=== PATIENT | female | born 1955 | race Caucasian/White ===

== ENCOUNTER → 2017-07-14 | Outpatient (CLI) | payer MEDICARE, BC ==
[2017-07-14 13:23] LABS: Basophils % (A) 0 %; CH 32.1; CHCM 34.1; Eosinophils # (A) 0.1 k/uL (0-0.7); Eosinophils % (A) 1 %; HDW 2.17; HGB 13.4 gm/dL (11.4-16.0); Luc # (Auto) 0.15; Luc % (Auto) 2; Lymphocytes # (A) 2.2 k/uL (1.0-4.8); Lymphocytes % (A) 29 %; MCH 31.7 pg (25.0-35.0); MCHC 33.6 g/dL (31.0-37.0); MCV 94.6 fL (80.0-100.0); Mean Platelet Volume 7.4; Monocytes # (A) 0.7 k/uL (0-1.0); Monocytes % (A) 10 %; Neutrophils # (A) 4.4 k/uL (1.3-7.7); Neutrophils % (A) 59 %; RBC 4.23 m/uL (3.80-5.40); RDW 12.7 % (11.5-15.5); WBC 7.5 k/uL (3.8-10.6); WBC (Perox) 7.73
[2017-07-14 14:22] LABS: Anion Gap 8 mmol/L; Blood Urea Nitrogen 17 mg/dL (7-17); Carbon Dioxide 28 mmol/L (22-30); Chloride 98 mmol/L (98-107); Glucose 84 mg/dL (74-99); Non-African American GFR(MDRD) 59 (>60 ml/min/1.73 sqM); Potassium 4.8 mmol/L (3.5-5.1); Sodium 134 mmol/L (137-145)
== END | disposition home or self-care (01) ==
LOC: LABPAT 12:12
PROVIDERS: ATTEND Obstetrics & Gynecology
DX: Z01.810 Encounter for preprocedural cardiovascular examination (principal); Z01.818 Encounter for other preprocedural examination; N81.4 Uterovaginal prolapse, unspecified; I10 Essential (primary) hypertension
CPT/HCPCS: 80051; 82565; 82947; 84520; 85025; 87086

== ENCOUNTER 2017-07-18 06:36 | Day surgery (SDC) | payer MEDICARE ==
[2017-07-16 08:36] VITALS: BMI 22.4
--- NOTE | 2017-07-17 18:35 | HP ---
HISTORY AND PHYSICAL HISTORY: This is a 61-year-old 2 para 2 woman with symptomatic pelvic prolapse and stress urinary incontinence. She is scheduled to undergo total vaginal hysterectomy with anterior and posterior colporrhaphies on 07/18/17. Mid urethral sling will be placed at the same time by Dr. Rodriguez from Urology. She complains of worsening pelvic pressure and tissue protrusion from the vagina over the last several years. She has leakage of urine with coughing, laughing, lifting or vigorous activities. She has pelvic and low back discomfort. ALLERGIES: 1. FLEXERIL. 2. PROZAC. 3. ZYRTEC. MEDICATIONS: 1. Ativan. 2. Depakote. 3. Inderal LA. 4. Lamictal. 5. Meclizine. 6. Procardia. 7. Protonix. 8. Seroquel. 9. Wellbutrin SR. Please refer to the chart for specific dosing. PAST MEDICAL HISTORY: 1. Stress urinary incontinence. 2. Pelvic prolapse. 3. Hypertension. 4. Seizure disorder. PAST SURGICAL HISTORY: 1. Cholecystectomy. 2. Inguinal hernia repair. [employer] PAST HISTORY: She is a 2 para 2 with history of 2 spontaneous vaginal deliveries. Last menstrual period was in 1993. No history of abnormal Pap smears or STDs. SOCIAL HISTORY: She is . She is an everyday smoker. Denies alcohol or drug use. FAMILY HISTORY: Significant for diabetes, hypertension and heart disease. REVIEW OF SYSTEMS: Positive for urinary incontinence, pelvic prolapse, pelvic pain. Negative for recent weight gain, weight loss, fevers, chills, nausea, vomiting, diarrhea, chronic constipation, chest pain, shortness of breath. PHYSICAL EXAM: Height 5 feet 3-1/2 inches. Weight 138 pounds. Blood pressure 158/80. GENERAL: This is a pleasant woman in no apparent distress. HEENT exam is unremarkable with no palpable lymphadenopathy or thyromegaly. The lungs are clear to auscultation bilaterally. The heart is of regular rate and rhythm. ABDOMEN: Soft and nontender with no rebound and no guarding and no flank pain. On pelvic examination, she has normal female external genitalia without lesions or irritation. There are some mild atrophic changes noted. On Valsalva maneuver she has a grade 2 rectocele and a grade 4 cystocele and grade 3 cervical uterine prolapse. She has a hypermobile urethra. On bimanual examination, the uterus is small, freely mobile and in the midline. There are no adnexal abnormalities appreciated. Rectovaginal examination confirms this. ASSESSMENT: This is a 61-year-old 2 para 2 woman with symptomatic stage III pelvic prolapse and stress urinary incontinence with a hypermobile urethra. She is scheduled to undergo total vaginal hysterectomy with anterior and posterior colporrhaphies, and a mid urethral sling will be done by Dr. Rodriguez at this time. This procedure, its alternatives, risks and benefits have been reviewed with the patient in detail. Risks include but are not limited to bleeding, transfusion, infection, laparotomy, damage to bowel, bladder, ureters and/or other pelvic or abdominal structures. She may have recurrence of her prolapse in the future. She may have ongoing incontinence or urinary retention. She may have anesthesia complications, DVT, PE and/or . The patient understands these risks and has declined a second opinion. She is scheduled to undergo the above-named procedure on 07/18/17. Thank you. JOHN / PAULETTE: [id number] /
[~2017-07-18 06:36] MED LIST: DEXAMETHASONE SOD PHOSPHATE 10 MG/ML 1 ML VIAL IV ONE; HYDROmorphone 1 MG/ML 1 ML SYRINGE IVP PRN; LACTATED RINGERS 1,000 ML IV SCH; LEVOFLOXACIN 500MG-D5W PMX 500 MG in DEXTROSE/WATER 1 100ML.BAG IVPB ONE; MIDAZOLAM 2 MG/2 ML VIAL IV PRN; ONDANSETRON 4 MG/2 ML VIAL IVP ONE; SCOPOLAMINE 1.5MG/72HR PATCH TRANSDERM ONE; ceFAZolin 2 GM in SODIUM CHLORIDE 0.9% 100 ML IVPB ONE
[2017-07-18] MEDS ORDERED: LIDOCAINE 1% 20 ML VIAL (10MG/ML) FOR IV START INTRADERMA ONE (07:19)
[2017-07-18] MEDS ORDERED: MORPHINE SULFATE (PF) 0.3 MG/0.3 ML SYR ONE (08:59)
[2017-07-18] MEDS ORDERED: fentaNYL (PF) 50 MCG/ML 2 ML AMP ONE (08:59)
[2017-07-18] MEDS ORDERED: MIDAZOLAM 2 MG/2 ML VIAL ONE (08:59)
[2017-07-18] MEDS ORDERED: GENTAMICIN IN NACL ISO-OSM PMX 80 MG/100 ML BAG IVPB ONE (09:00)
[2017-07-18] MEDS ORDERED: VASOPRESSIN 20 UNIT/ML 1 ML VIAL SQ ONE (09:00)
[2017-07-18] MEDS ORDERED: BACITRACIN 500 UNIT/GM OINT 28.4 GM TUBE TOPICAL ONE (09:00)
--- NOTE | 2017-07-18 11:07 | P.OP ---
Date of Procedure: 07/18/17 Preoperative Diagnosis: Third-degree cystocele, third degree cervical uterine prolapse, second-degree rectocele, stress urinary incontinence with hypermobile urethra Postoperative Diagnosis: Same Procedure(s) Performed: Total vaginal hysterectomy with anterior and posterior colporrhaphy. Mid urethral sling and cystoscopy performed by Dr Rodriguez. Anesthesia: spinal Surgeon: Hetal Gautam Street Inspector #1: Carlo Joyner Estimated Blood Loss (ml): 75 Urine output (ml): 400 Pathology: other (Uterus) Condition: stable Disposition: PACU Indications for Procedure: Symptomatic stage III pelvic prolapse and stress urinary incontinence Description of Procedure: After the patient and her were met in the preoperative holding area and all persons were answered, she was taken to the operating room where anesthetic was administered without incident. She was then positioned, prepped and draped in the dorsal lithotomy position. Anesthetic was confirmed adequate. The bladder was drained for approximately 400 mL of clear urine. Weighted speculum was placed in the vagina and the cervix and vaginal mucosa were infused with dilute vasopressin solution. A circumferential incision was made about the cervix. The vaginal Koza was then bluntly away from the cervix circumferentially. The posterior peritoneum was then placed on countertraction and entered sharply. The peritoneal incision was extended on and tagged with a 2-0 Vicryl suture. Long weighted speculum was placed. The anterior vaginal Koza was further advanced anteriorly bluntly. The uterosacral ligaments were identified bilaterally, clamped, cut and suture ligated. These were tagged. The bladder was further advanced. The uterine vasculature was clamped, cut and suture ligated bilaterally. The posterior fundus of the uterus was then delivered and a window was made in the anterior peritoneum. The bilateral cornua were clamped, cut and doubly suture ligated. The ovaries were not visible in the surgical Field nor palpable. The cornual pedicles were inspected and noted to be hemostatic. The long weighted speculum was then removed and the short weighted speculum was placed. The peritoneum was closed in a pursestring fashion. The there was some bleeding noted in from the right vaginal cuff sidewall which was addressed using a [id number] suture. The uterosacral ligaments were then reapproximated in the midline with 2-0 Vicryl suture. The cuff was then closed in an interrupted fashion incorporating the uterosacral ligaments. Attention was then turned to the anterior portion of the case. The anterior vaginal Koza was delineated using Allis clamps and was infused with dilute vasopressin solution. The anterior vaginal mucosa was then undermined with Metzenbaum scissors and the incision was extended superiorly to approximately 1.5 cm below the urethral orifice. The underlying vesicovaginal tissue was bluntly and sharply dissected away from the vaginal mucosa to the level of the fascial defect. Hicks catheter was placed in the bladder and copious clear urine was noted. The fascia was then reapproximated in the midline with Shae plication stitches. The excess vaginal mucosa was trimmed. Attention was then turned to the posterior repair. The remnants of the hymeneal ring were identified and Allis clamps were placed. The area was infused in the perineum with dilute vasopressin solution in the posterior vaginal Koza was similarly infused. A triangular incision was made at the perineum. Excess tissue was removed. Metzenbaum scissors were utilized to undermine the posterior vaginal mucosa to the apex of the defect. This was incised in the midline. The underlying rectovaginal tissue was dissected away from the posterior vaginal mucosa. Defect was then closed in an interrupted fashion with 2-0 Vicryl suture. Excess mucosal tissue was trimmed. The posterior vaginal Koza was then closed in a running locked fashion with 2-0 Vicryl suture to the level of the perineal body. [facility] stitch was then placed to reapproximate the perineal body which was then closed in the usual fashion. At this point came or took over the procedure to place the mid urethral slings through the already open anterior vaginal mucosa. Please see his note for details. All counts were reported to me as correct at the completion of the rectocele repair. The patient was in stable condition.
--- NOTE | 2017-07-18 11:10 | P.OP ---
Date of Procedure: 07/18/17 Preoperative Diagnosis: Stress urinary incontinence Postoperative Diagnosis: Stress urinary incontinence Procedure(s) Performed: Obturyx trans-obturator mid urethral sling and cystoscopy Anesthesia: spinal Surgeon: Aurelio Rodriguez Pathology: none sent Condition: stable Disposition: PACU Indications for Procedure: The patient is a 61-year-old female with progressive urine leakage with activity. Urodynamic evaluation has confirmed stress urinary incontinence with a cough leak point pressure over 100 cm of water and a hypermobile bladder neck. Patient also has pelvic organ prolapse with a large cystocele and rectocele. Dr. Gautam plans vaginal hysterectomy with anterior/posterior colporrhaphy. Placement of a synthetic trans-obturator mid urethral sling is planned in the same anesthetic for treatment of the incontinence. Description of Procedure: The patient was initially given spinal anesthetic and placed in the dorsal lithotomy position. A Betadine douche and Betadine perineal prep was performed. Dr. Gautam performed a vaginal hysterectomy with anterior/ posterior colporrhaphy. The anterior vaginal incision was left open in the region of the urethra. A 16-Burkinan Hicks catheter had previously been inserted. The periurethral tissue was dissected off the anterior vaginal wall lateral to the urethra and the dissection was continued laterally so that a finger could be placed through the vaginal incision and directed to near the obturator foramen on the right and left side. 7 mm skin incisions were then made in the right and left groin at a level adjacent to the clitoris. A curved introducer was then passed through the left groin incision, through the obturator foramen superior to the inferior pubic ramus and then directed out lateral to the mid urethra with a finger placed through the vaginal incision. One end of the sling material was attached to the introducer which was then pulled out into the groin. An identical procedure was then performed through the right groin incision where the introducer was passed through the obturator foramen superior to the inferior pubic ramus and then directed out lateral to the mid urethra with a finger placed in the vaginal incision. The other end of the graft was attached to the introducer which was then pulled out into the groin incision. The Hicks catheter was removed. Cystoscopy was performed using the 17-Burkinan sheath and 70 lens. The bladder was free of tumor foreign body and perforation. Both ureteral orifice ease were normal location and configuration and effluxed clear urine. The urethra was examined as the cystoscope was withdrawn and was unremarkable. The Hicks catheter was reinserted. The graft was pulled up to the mid urethra and the plastic sheathing was removed. The position of the graft was inspected and there appeared to be no upward traction. The ends of the graft were then trimmed below the skin level in each groin. The anterior vaginal wall was then closed using running locked 3-0 Vicryl. Bacitracin impregnated gauze was then placed into the vagina for packing. Mastisol and Steri-Strips were placed across each groin incision. The patient tolerated procedure well and left the operative room awake and in satisfactory condition. Blood loss during the mid urethral sling was less than 5 mL. It is anticipated the patient's Hicks catheter and vaginal packing will be removed in the morning.
[2017-07-18] MEDS ORDERED: LACTATED RINGERS 1,000 ML IV SCH (12:00)
[2017-07-18] MEDS ORDERED: METOCLOPRAMIDE 5 MG/ML 2 ML VIAL IVP PRN (12:00)
[2017-07-18] MEDS ORDERED: IBUPROFEN 600 MG TAB PO PRN (12:00)
[2017-07-18] MEDS ORDERED: Acetaminophen-Codeine 300-30mg TAB PO PRN ×2 (12:00)
[2017-07-18] MEDS ORDERED: SIMETHICONE 80 MG CHEWABLE PO PRN (12:00)
[2017-07-18] MEDS ORDERED: LORazepam 0.5 MG TAB PO PRN (15:00)
[2017-07-18] MEDS: DIVALPROEX ER 500 MG TAB.ER.24H PO SCH ×2 (15:24→21:11)
[2017-07-18] MEDS ORDERED: ONDANSETRON 4 MG/2 ML VIAL IVP PRN (17:30)
[2017-07-18] MEDS ORDERED: NALOXONE 0.4 MG/ML 1 ML VIAL IV PRN (17:30)
[2017-07-18] MEDS: diphenhydrAMINE 50 MG/ML 1 ML VIAL IVP PRN ×2 (17:49→18:11)
[2017-07-18] MEDS ORDERED: QUEtiapine 100 MG TAB PO SCH ×2 (21:00)
[2017-07-18] MEDS: lamoTRIgine 100 MG TAB PO SCH (21:12)
[2017-07-18] MEDS: SENNOSIDES-DOCUSATE SODIUM 1 EACH TAB PO SCH (21:12)
[2017-07-18] MEDS: KETOROLAC 30 MG/ML 1 ML VIAL IVP PRN (21:14)
[2017-07-19] MEDS: diphenhydrAMINE 50 MG/ML 1 ML VIAL IVP PRN (00:17)
[2017-07-19] MEDS ORDERED: PANTOPRAZOLE 40 MG TABLET PO SCH (06:30)
[2017-07-19 06:33] LABS: Basophils % (A) 0 %; CH 32.4; CHCM 34.3; Eosinophils # (A) 0.1 k/uL (0-0.7); Eosinophils % (A) 1 %; HCT 33.5 % (34.0-46.0); HGB 11.3 gm/dL (11.4-16.0); Luc # (Auto) 0.09; Luc % (Auto) 1; Lymphocytes # (A) 2.6 k/uL (1.0-4.8); Lymphocytes % (A) 37 %; MCH 32.1 pg (25.0-35.0); MCHC 33.8 g/dL (31.0-37.0); MCV 94.9 fL (80.0-100.0); Mean Platelet Volume 7.6; Monocytes # (A) 0.6 k/uL (0-1.0); Monocytes % (A) 8 %; Neutrophils # (A) 3.7 k/uL (1.3-7.7); Neutrophils % (A) 53 %; RBC 3.53 m/uL (3.80-5.40); RDW 13.3 % (11.5-15.5); WBC (Perox) 7.48
[2017-07-19] MEDS: KETOROLAC 30 MG/ML 1 ML VIAL IVP PRN ×2 (06:40→12:07)
--- NOTE | 2017-07-19 07:26 | P.PN ---
Progress Note - Text Mrs. Bansal is feeling well. She reports mild discomfort, which is relieved by Toradol. She is afebrile with stable vital signs. Her vaginal packing was removed, and there is minimal spotting noted. The incisions are intact. The Hicks catheter remains in place, draining clear yellow urine. The catheter will be removed for a voiding trial. If she is unable to void, or empties her bladder incompletely, she will be taught to self catheterize. Discharge home later today is anticipated. She will follow up with Dr. Rodriguez in 1 week.
[2017-07-19 08:23] VITALS: TEMP 98.2
[2017-07-19] MEDS: lamoTRIgine 100 MG TAB PO SCH (08:27)
[2017-07-19] MEDS: SENNOSIDES-DOCUSATE SODIUM 1 EACH TAB PO SCH (08:28)
[2017-07-19] MEDS: DIVALPROEX ER 500 MG TAB.ER.24H PO SCH (08:28)
[2017-07-19] MEDS ORDERED: buPROPion XL 300 MG TAB.ER.24H PO SCH (09:00)
[2017-07-19] MEDS ORDERED: QUEtiapine 25 MG TAB PO SCH (09:00)
[2017-07-19] MEDS ORDERED: PROPRANOLOL LA 80 MG CAP.SA.24H PO SCH (09:00)
--- NOTE | 2017-07-19 09:46 | P.DS ---
Providers Expected date of discharge: 07/19/17 Attending physician: Hetal Gautam Primary care physician: Jimmy Hamilton - Discharge Diagnosis(es) (1) Current Visit: No (2) Cystocele or rectocele with uterine prolapse Current Visit: Yes Status: Acute (3) Urinary, incontinence, stress female Current Visit: Yes Status: Acute Hospital Course: This is a 61-year-old woman with symptomatic grade 3 pelvic prolapse including cystocele, rectocele and uterine prolapse. She also suffers from stress urinary incontinence. She was admitted on 07/18/2017 and went to the operating room where she underwent an unremarkable total vaginal hysterectomy with anterior and posterior colporrhaphy as. Mid urethral sling was also placed at that time. The patient's postoperative course was unremarkable. By the evening of postoperative day 0 she was tolerating a general diet. By the morning of postoperative day #1 she was doing well. Her vaginal packing was removed and she had minimal vaginal bleeding. Her Hicks catheter was removed and voiding trials were initiated. Her abdomen was soft and nontender and her groin incisions were dry. Her vital signs were stable. She was therefore discharged home with specific instructions for care and follow-up depending on good post void residual levels. Procedures: Total vaginal hysterectomy with anterior and posterior colporrhaphy is, mid urethral sling placement and cystoscopy Patient Condition at Discharge: Good Plan - Discharge Summary New Discharge Prescriptions: New Ketorolac [Toradol] 10 mg PO Q6HR #20 tab No Action Pantoprazole Sodium 40 mg PO DAILY Meclizine [Antivert] 12.5 mg PO TID Propranolol HCl [Inderal LA] 160 mg PO BID lamoTRIgine [LaMICtal] 100 mg PO BID QUEtiapine [SEROquel] 25 mg PO DAILY #30 tab LORazepam [Ativan] 1 mg PO TID PRN #30 tab PRN Reason: Anxiety NIFEdipine [Procardia XL] 60 mg PO DAILY buPROPion XL [Wellbutrin XL] 150 mg PO DAILY buPROPion HCL [Wellbutrin XL] 300 mg PO DAILY Divalproex ER [Depakote ER] 500 mg PO TID Aspirin [Adult Low Dose Aspirin EC] 81 mg PO DAILY Multivitamins, Thera [Multivitamin (formulary)] 1 tab PO DAILY Docusate [Colace] 100 mg PO BID QUEtiapine [SEROquel] 100 mg PO HS Discharge Medication List Meclizine [Antivert] 12.5 mg PO TID 12/12/14 [History] Pantoprazole Sodium 40 mg PO DAILY 12/12/14 [History] Propranolol HCl [Inderal LA] 160 mg PO BID 12/12/14 [History] lamoTRIgine [LaMICtal] 100 mg PO BID 12/12/14 [History] LORazepam [Ativan] 1 mg PO TID PRN #30 tab 12/16/14 [Rx] QUEtiapine [SEROquel] 25 mg PO DAILY #30 tab 12/16/14 [Rx] Aspirin [Adult Low Dose Aspirin EC] 81 mg PO DAILY 07/16/17 [History] Divalproex ER [Depakote ER] 500 mg PO TID 07/16/17 [History] Docusate [Colace] 100 mg PO BID 07/16/17 [History] Multivitamins, Thera [Multivitamin (formulary)] 1 tab PO DAILY 07/16/17 [History ] NIFEdipine [Procardia XL] 60 mg PO DAILY 07/16/17 [History] buPROPion HCL [Wellbutrin XL] 300 mg PO DAILY 07/16/17 [History] buPROPion XL [Wellbutrin XL] 150 mg PO DAILY 07/16/17 [History] QUEtiapine [SEROquel] 100 mg PO HS 07/18/17 [History] Ketorolac [Toradol] 10 mg PO Q6HR #20 tab 07/19/17 [Rx] Follow up Appointment(s)/Referral(s): Aurelio Rodriguez MD [STAFF PHYSICIAN] - 1 Week Hetal Gautam MD [STAFF PHYSICIAN] - 2 Weeks Activity/Diet/Wound Care/Special Instructions: Diet as tolerated. Okay to shower. No lifting, driving, or strenuous activity. Discharge Disposition: HOME SELF-CARE
[2017-07-19 12:10] VITALS: BP 126/77; PULSE 64; RESP 21
== END 2017-07-19 13:58 | disposition home or self-care (01) ==
LOC: OR 06:36 → 6PED 11:02 → OR 07-19 13:58
PROVIDERS: ATTEND Obstetrics & Gynecology
DX: N39.3 Stress incontinence (female) (male) (principal); N81.2 Incomplete uterovaginal prolapse; N36.41 Hypermobility of urethra; N84.0 Polyp of corpus uteri; F41.9 Anxiety disorder, unspecified; F31.9 Bipolar disorder, unspecified; I10 Essential (primary) hypertension; G40.909 Epilepsy, unspecified, not intractable, without status epilepticus; K21.9 Gastro-esophageal reflux disease without esophagitis; F32.9 Major depressive disorder, single episode, unspecified; F17.200 Nicotine dependence, unspecified, uncomplicated; Z79.82 Long term (current) use of aspirin; Z79.899 Other long term (current) drug therapy; Z88.8 Allergy status to other drugs, medicaments and biological substances; Z91.013 Allergy to seafood
CPT/HCPCS: 58260; 57260; 57288; 85025; 88307; C2627; J1580; J2250; J1200 ×2; J1100; J0690; J2405; J1956; J2274; J3010; J1885 ×2; 86850; 86900; 86901

== ENCOUNTER 2017-07-20 02:54 | Observation (INO) | payer MEDICARE, BC ==
[2017-07-20] MEDS ORDERED: SODIUM CHLORIDE 0.9% 1,000 ML IV ONE (03:34)
--- NOTE | 2017-07-20 03:34 | ED ---
General Adult HPI - General Chief complaint: Recheck/Abnormal Lab/Rx Stated complaint: Post-Op Complication Time Seen by Provider: 07/20/17 03:01 Source: patient, EMS, RN notes reviewed, old records reviewed Mode of arrival: EMS Limitations: no limitations - History of Present Illness Initial comments: This is a 60-year-old female here for evaluation today. This is because reevaluation regarding vaginal bleeding. Patient has recent history of hysterectomy, significant bleeding. Patient had an is transferred as Hospital for evaluation by OB. Patient had her vagina [facility] and was monitored still bleeding through that site. Patient denies lightheadedness or dizziness at this time. - Related Data Home Medications Medication Instructions Recorded Confirmed Meclizine [Antivert] 12.5 mg PO TID 12/12/14 07/18/17 Pantoprazole Sodium 40 mg PO DAILY 12/12/14 07/18/17 Propranolol HCl [Inderal LA] 160 mg PO BID 12/12/14 07/18/17 lamoTRIgine [LaMICtal] 100 mg PO BID 12/12/14 07/18/17 Aspirin [Adult Low Dose Aspirin EC] 81 mg PO DAILY 07/16/17 07/18/17 Divalproex ER [Depakote ER] 500 mg PO TID 07/16/17 07/18/17 Docusate [Colace] 100 mg PO BID 07/16/17 07/18/17 Multivitamins, Thera [Multivitamin 1 tab PO DAILY 07/16/17 07/18/17 (formulary)] NIFEdipine [Procardia XL] 60 mg PO DAILY 07/16/17 07/18/17 buPROPion HCL [Wellbutrin XL] 300 mg PO DAILY 07/16/17 07/18/17 buPROPion XL [Wellbutrin XL] 150 mg PO DAILY 07/16/17 07/18/17 QUEtiapine [SEROquel] 100 mg PO HS 07/18/17 07/18/17 Previous Rx's Medication Instructions Recorded LORazepam [Ativan] 1 mg PO TID PRN #30 tab 12/16/14 QUEtiapine [SEROquel] 25 mg PO DAILY #30 tab 12/16/14 Ketorolac [Toradol] 10 mg PO Q6HR #20 tab 07/19/17 Allergies Allergy/AdvReac Type Severity Reaction Status Date / Time cetirizine [From Zyrtec] Allergy thoat Verified 07/20/17 02:56 itching,rash fluoxetine HCl [From Prozac] Allergy Rash/Hives Verified 07/20/17 02:56 shellfish derived [Shellfish] Allergy throat Verified 07/20/17 02:56 itching, rash succinylcholine Allergy high BP Verified 07/20/17 02:56 cyclobenzaprine HCl AdvReac throat Verified 07/20/17 02:56 [From Flexeril] itching,rash oxcarbazepine AdvReac dehydration Verified 07/20/17 02:56 [From Trileptal] Review of Systems ROS Statement: Those systems with pertinent positive or pertinent negative responses have been documented in the HPI. ROS Other: All systems not noted in ROS Statement are negative. Past Medical History Past Medical History: COPD, GERD/Reflux, Hypertension, Osteoarthritis (OA) Additional Past Medical History / Comment(s): vertigo, hx migraines, constipation, History of Any Multi-Drug Resistant Organisms: None Reported Past Surgical History: Adenoidectomy, Back Surgery, Bladder Surgery, Cholecystectomy, Hernia Repair, Hysterectomy, Tonsillectomy Additional Past Surgical History / Comment(s): justine inguinal hernia, ruptured disk L5 S1, venous access stimuilator(VNS) placed- now turned off. 07/18/2017 vag hysterectomy, bladder sling, anterior and posterior repair. Past Anesthesia/Blood Transfusion Reactions: Previous Problems w/ Anesthesia Additional Past Anesthesia/Blood Transfusion Reaction / Comment(s): B\P gets really high when she is put under anasthesia with succinylcholine. vertigo Past Psychological History: Anxiety, Bipolar, Depression Smoking Status: Former smoker Past Alcohol Use History: None Reported Past Drug Use History: None Reported - Past Family History Mother Family Medical History: Cancer Sister(s) Family Medical History: Cancer General Exam Limitations: no limitations General appearance: alert, in no apparent distress Head exam: Present: atraumatic, normocephalic, normal inspection Eye exam: Present: normal appearance, PERRL, EOMI. Absent: scleral icterus, conjunctival injection, periorbital swelling ENT exam: Present: normal exam, mucous membranes moist Neck exam: Present: normal inspection. Absent: tenderness, meningismus, lymphadenopathy Respiratory exam: Present: normal lung sounds bilaterally. Absent: respiratory distress, wheezes, rales, rhonchi, stridor Cardiovascular Exam: Present: regular rate, normal rhythm, normal heart sounds. Absent: systolic murmur, diastolic murmur, rubs, gallop, clicks GI/Abdominal exam: Present: soft, normal bowel sounds. Absent: distended, tenderness, guarding, rebound, rigid Extremities exam: Present: normal inspection, full ROM, normal capillary refill. Absent: tenderness, pedal edema, joint swelling, calf tenderness Back exam: Present: normal inspection Neurological exam: Present: alert, oriented X3, CN II-XII intact Psychiatric exam: Present: normal affect, normal mood Skin exam: Present: warm, dry, intact, normal color. Absent: rash Course Vital Signs 07/20/17 02:56 Temperature 98.1 F Pulse Rate 66 Respiratory 16 Rate Blood Pressure 167/76 O2 Sat by Pulse 100 Oximetry - Reevaluation(s) Reevaluation #1: 07/20/17 03:34 Transfer paperwork is filled. Medical Decision Making - Medical Decision Making 61. EMS status post hysterectomy. At this time patient has no specific complaints the patient is having severe postoperative bleeding. Patient be admitted for observation and further evaluation by surgery Disposition Clinical Impression: Post-op bleeding Disposition: ADMITTED IP TO THIS HOSP Condition: Fair Referrals: Jimmy Hamilton MD [Primary Care Provider] - 1-2 days
[2017-07-20] MEDS ORDERED: MORPHINE SULFATE 4 MG/ML SYRINGE IVP STA (03:45)
[2017-07-20 05:10] VITALS: BMI 22.3
[2017-07-20] MEDS: MORPHINE SULFATE 4 MG/ML SYRINGE IVP PRN ×2 (06:51→12:33)
[2017-07-20] MEDS ORDERED: LORazepam 1 MG TAB PO PRN (07:12)
--- NOTE | 2017-07-20 08:33 | P.HPOB ---
History of Present Illness H&P Date: 07/20/17 Chief Complaint: Vaginal bleeding This is a 61-year-old woman who is postop day 2 status post total vaginal hysterectomy, anterior and posterior colporrhaphy, mid urethral sling placement and cystoscopy. She was discharged home on postoperative day #1 in good condition. At home on the evening of postoperative day #1 she had a couple of episodes of significant diarrhea and large bowel movement. After this she noted active vaginal bleeding with clots. She was initially seen at [facility] emergency room on the and bleeding was confirmed. Vaginal packing was placed and she was transferred here for admission. Her hemoglobin was 11.3. Currently she is complaining of pelvic discomfort from the vaginal packing. She feels slightly "weak". She denies abdominal pain or distention. She denies fevers, chills, nausea or vomiting. She is able to void spontaneously and has been up to the bathroom with a scant amount of vaginal bleeding. Review of Systems Constitutional: Denies chills, Denies fever Cardiovascular: Denies chest pain, Denies shortness of breath, Denies syncope Respiratory: Denies cough Gastrointestinal: Reports diarrhea, Denies abdominal pain, Denies BRBPR, Denies nausea, Denies vomiting Genitourinary: Reports abnormal vaginal bleeding Psychiatric: Reports anxiety Past Medical History Past Medical History: COPD, GERD/Reflux, Hypertension, Osteoarthritis (OA) Additional Past Medical History / Comment(s): vertigo, hx migraines, constipation, History of Any Multi-Drug Resistant Organisms: None Reported Past Surgical History: Adenoidectomy, Back Surgery, Bladder Surgery, Cholecystectomy, Hernia Repair, Hysterectomy, Tonsillectomy Additional Past Surgical History / Comment(s): justine inguinal hernia, ruptured disk L5 S1, venous access stimuilator(VNS) placed- now turned off. 07/18/2017 vag hysterectomy, bladder sling, anterior and posterior repair. Past Anesthesia/Blood Transfusion Reactions: Previous Problems w/ Anesthesia Additional Past Anesthesia/Blood Transfusion Reaction / Comment(s): B\\P gets really high when she is put under anasthesia with succinylcholine. vertigo Past Psychological History: Anxiety, Bipolar, Depression Smoking Status: Former smoker Past Alcohol Use History: None Reported Additional Past Alcohol Use History / Comment(s): quit smoking 10 yrs ago, smoked for 30 yrs, was 1 PPD Past Drug Use History: None Reported - Past Family History Mother Family Medical History: Cancer Sister(s) Family Medical History: Cancer Medications and Allergies Home Medications Medication Instructions Recorded Confirmed Type Meclizine [Antivert] 12.5 mg PO TID 12/12/14 07/20/17 History Pantoprazole Sodium 40 mg PO DAILY 12/12/14 07/20/17 History Propranolol HCl [Inderal LA] 160 mg PO BID 12/12/14 07/20/17 History lamoTRIgine [LaMICtal] 100 mg PO BID 12/12/14 07/20/17 History LORazepam [Ativan] 1 mg PO TID PRN #30 tab 12/16/14 07/20/17 Rx QUEtiapine [SEROquel] 25 mg PO DAILY #30 tab 12/16/14 07/20/17 Rx Aspirin [Adult Low Dose Aspirin EC] 81 mg PO DAILY 07/16/17 07/20/17 History Divalproex ER [Depakote ER] 500 mg PO TID 07/16/17 07/20/17 History Docusate [Colace] 100 mg PO BID 07/16/17 07/20/17 History Multivitamins, Thera [Multivitamin 1 tab PO DAILY 07/16/17 07/20/17 History (formulary)] NIFEdipine [Procardia XL] 60 mg PO DAILY 07/16/17 07/20/17 History buPROPion HCL [Wellbutrin XL] 300 mg PO DAILY 07/16/17 07/20/17 History buPROPion XL [Wellbutrin XL] 150 mg PO DAILY 07/16/17 07/20/17 History QUEtiapine [SEROquel] 100 mg PO HS 07/18/17 07/20/17 History Ketorolac [Toradol] 10 mg PO Q6HR #20 tab 07/19/17 07/20/17 Rx Allergies Allergy/AdvReac Type Severity Reaction Status Date / Time cetirizine [From Zyrtec] Allergy thoat Verified 07/20/17 02:56 itching,rash fluoxetine HCl [From Prozac] Allergy Rash/Hives Verified 07/20/17 02:56 shellfish derived [Shellfish] Allergy throat Verified 07/20/17 02:56 itching, rash succinylcholine Allergy high BP Verified 07/20/17 02:56 cyclobenzaprine HCl AdvReac throat Verified 07/20/17 02:56 [From Flexeril] itching,rash oxcarbazepine AdvReac dehydration Verified 07/20/17 02:56 [From Trileptal] Exam - Vital Signs Vital signs: Vital Signs Temp Pulse Pulse Resp BP BP Pulse Ox 07/20/17 07:00 97.6 F 76 20 115/69 97 07/20/17 05:02 97.8 F 65 18 144/76 96 07/20/17 03:51 66 16 149/98 100 07/20/17 02:56 98.1 F 66 16 167/76 100 Intake and Output 07/19/17 07/20/17 07/20/17 22:59 06:59 14:59 Output Total 500 Balance -500 Output: Urine 500 Other: Voiding Method Toilet Toilet # Voids 1 Weight 58.967 kg This is a pleasant but somewhat pale-appearing female in no acute distress. Her vital signs are stable. Her abdomen is slim, soft, non- distended and nontender. On pelvic examination there is scant pink drainage onto the pad. Vaginal packing is removed and no active bleeding is noted. Gentle speculum examination is performed and there is a small nickel-sized dark clot adherent to the apex of the vaginal cuff. This is gently removed. No active bleeding is noticed. There appears to be a scant amount of bright red blood along the anterior cystocele repair line but is not active. This is observed for some time with no accumulation of active bleeding. Iodoform half inch is utilized to tightly re-pack the vagina. Assessment and Plan (1) Post-op bleeding Narrative/Plan: No current active vaginal bleeding is observed at this time. The vagina has been repacked and will remain in place until this evening. We will remove at that time and observed overnight. Repeat hemoglobin now and continue IV fluids and pain management. Status: Acute (2) Cystocele or rectocele with uterine prolapse Status: Acute (3) Urinary, incontinence, stress female Status: Acute (4) S/P hysterectomy Status: Acute
[2017-07-20] MEDS: PANTOPRAZOLE 40 MG TABLET PO SCH (08:49)
[2017-07-20] MEDS: MECLIZINE 12.5 MG TAB PO SCH ×3 (08:50→21:04)
[2017-07-20] MEDS: QUEtiapine 25 MG TAB PO SCH (08:51)
[2017-07-20] MEDS: lamoTRIgine 100 MG TAB PO SCH ×2 (08:51→21:05)
[2017-07-20] MEDS: PROPRANOLOL LA 80 MG CAP.SA.24H PO SCH ×2 (08:55→21:06)
[2017-07-20] MEDS: buPROPion XL 150 MG TAB.ER.24H PO SCH (08:55)
[2017-07-20] MEDS: DIVALPROEX ER 500 MG TAB.ER.24H PO SCH ×3 (08:57→21:04)
[2017-07-20] MEDS ORDERED: buPROPion XL 300 MG TAB.ER.24H PO SCH (09:00)
[2017-07-20 09:13] LABS: CH 32.5; CHCM 34.4; HCT 31.2 % (34.0-46.0); HDW 2.18; HGB 10.5 gm/dL (11.4-16.0); MCH 31.9 pg (25.0-35.0); MCHC 33.6 g/dL (31.0-37.0); Mean Platelet Volume 7.8; RBC 3.29 m/uL (3.80-5.40); RDW 13.2 % (11.5-15.5); WBC 7.8 k/uL (3.8-10.6)
[2017-07-20] MEDS: ACETAMINOPHEN TAB 325 MG TAB PO PRN ×3 (09:54→21:03)
[2017-07-20] MEDS: DOCUSATE 100 MG CAP PO SCH ×2 (12:19→21:04)
[2017-07-20] MEDS: MULTIVITAMINS, THERA 1 EACH TAB PO SCH (12:20)
[2017-07-20] MEDS ORDERED: MORPHINE SULFATE 4 MG/ML SYRINGE IVP PRN (17:26)
[2017-07-20] MEDS: traMADol 50 MG TAB PO PRN ×2 (17:38→22:57)
[2017-07-20] MEDS ORDERED: QUEtiapine 100 MG TAB PO SCH (21:00)
[2017-07-21] MEDS: traMADol 50 MG TAB PO PRN (06:01)
[2017-07-21 06:48] LABS: CH 31.6; CHCM 33.4; HCT 30.5 % (34.0-46.0); HDW 2.23; HGB 10.3 gm/dL (11.4-16.0); MCH 32.2 pg (25.0-35.0); MCHC 33.8 g/dL (31.0-37.0); MCV 95.1 fL (80.0-100.0); Mean Platelet Volume 7.4; RBC 3.21 m/uL (3.80-5.40); RDW 12.9 % (11.5-15.5); WBC 8.9 k/uL (3.8-10.6)
[2017-07-21] MEDS: PANTOPRAZOLE 40 MG TABLET PO SCH (07:44)
[2017-07-21] MEDS ORDERED: KETOROLAC 30 MG/ML 1 ML VIAL IVP STA (07:54)
[2017-07-21] MEDS: buPROPion XL 150 MG TAB.ER.24H PO SCH (09:24)
[2017-07-21] MEDS: DOCUSATE 100 MG CAP PO SCH (09:25)
[2017-07-21] MEDS: DIVALPROEX ER 500 MG TAB.ER.24H PO SCH (09:25)
[2017-07-21] MEDS: MECLIZINE 12.5 MG TAB PO SCH (09:25)
[2017-07-21] MEDS: QUEtiapine 25 MG TAB PO SCH (09:25)
[2017-07-21] MEDS: lamoTRIgine 100 MG TAB PO SCH (09:25)
[2017-07-21] MEDS: PROPRANOLOL LA 80 MG CAP.SA.24H PO SCH (09:25)
--- NOTE | 2017-07-21 10:32 | P.DS ---
Providers Date of admission: 07/20/17 03:34 Expected date of discharge: 07/21/17 Attending physician: Hetal Gautam Primary care physician: Jimmy Hamilton - Discharge Diagnosis(es) (1) Post-op bleeding Current Visit: Yes Status: Acute (2) Cystocele or rectocele with uterine prolapse Current Visit: No Status: Acute (3) Urinary, incontinence, stress female Current Visit: No Status: Acute (4) S/P hysterectomy Current Visit: Yes Status: Acute Hospital Course: This is a 61-year-old woman who presented on postoperative day #2 in transport from the [facility] with vaginal bleeding. She had a history of recent total vaginal hysterectomy with anterior and posterior colporrhaphy is admitted urethral sling placement. She reported having a large bowel movement then followed by heavy vaginal bleeding. The assessment at the [facility] facility was that this was a postoperative bleed, she was therefore transported here. Upon evaluation here the vagina was packed and there was no active bleeding noted. Her hemoglobin was stable at approximately 11.5. She underwent a pelvic examination at which time the packing was removed and no active bleeding was noted. All suture lines appeared intact. The vagina was repacked for approximately 12 hours it was then removed again. The packing has now been out for approximately 14 hours with no bleeding. This morning she did have some perineal pain and pelvic exam was repeated. There is no evidence of hematoma or active bleeding noted. Her pain was controlled eventually with Toradol. Her hemoglobin remained stable at 10.5. She was therefore discharged home with previously established plan for postop follow-up. Patient Condition at Discharge: Good Plan - Discharge Summary New Discharge Prescriptions: No Action Pantoprazole Sodium 40 mg PO DAILY Meclizine [Antivert] 12.5 mg PO TID Propranolol HCl [Inderal LA] 160 mg PO BID lamoTRIgine [LaMICtal] 100 mg PO BID QUEtiapine [SEROquel] 25 mg PO DAILY #30 tab LORazepam [Ativan] 1 mg PO TID PRN #30 tab PRN Reason: Anxiety NIFEdipine [Procardia XL] 60 mg PO DAILY buPROPion XL [Wellbutrin XL] 150 mg PO DAILY buPROPion HCL [Wellbutrin XL] 300 mg PO DAILY Divalproex ER [Depakote ER] 500 mg PO TID Aspirin [Adult Low Dose Aspirin EC] 81 mg PO DAILY Multivitamins, Thera [Multivitamin (formulary)] 1 tab PO DAILY Docusate [Colace] 100 mg PO BID QUEtiapine [SEROquel] 100 mg PO HS Ketorolac [Toradol] 10 mg PO Q6HR #20 tab Acetaminophen Tab [Tylenol Tab] 1,000 mg PO BID PRN PRN Reason: Pain Discharge Medication List Meclizine [Antivert] 12.5 mg PO TID 12/12/14 [History] Pantoprazole Sodium 40 mg PO DAILY 12/12/14 [History] Propranolol HCl [Inderal LA] 160 mg PO BID 12/12/14 [History] lamoTRIgine [LaMICtal] 100 mg PO BID 12/12/14 [History] LORazepam [Ativan] 1 mg PO TID PRN #30 tab 12/16/14 [Rx] QUEtiapine [SEROquel] 25 mg PO DAILY #30 tab 12/16/14 [Rx] Aspirin [Adult Low Dose Aspirin EC] 81 mg PO DAILY 07/16/17 [History] Divalproex ER [Depakote ER] 500 mg PO TID 07/16/17 [History] Docusate [Colace] 100 mg PO BID 07/16/17 [History] Multivitamins, Thera [Multivitamin (formulary)] 1 tab PO DAILY 07/16/17 [History ] NIFEdipine [Procardia XL] 60 mg PO DAILY 07/16/17 [History] buPROPion HCL [Wellbutrin XL] 300 mg PO DAILY 07/16/17 [History] buPROPion XL [Wellbutrin XL] 150 mg PO DAILY 07/16/17 [History] QUEtiapine [SEROquel] 100 mg PO HS 07/18/17 [History] Ketorolac [Toradol] 10 mg PO Q6HR #20 tab 07/19/17 [Rx] Acetaminophen Tab [Tylenol Tab] 1,000 mg PO BID PRN 07/20/17 [History] Follow up Appointment(s)/Referral(s): Jimmy Hamilton MD [Primary Care Provider] - As Needed Hetal Gautam MD [STAFF PHYSICIAN] - 2 Weeks Discharge Disposition: HOME SELF-CARE
[2017-07-21 12:18] VITALS: BP 112/70; PULSE 70; RESP 20; TEMP 98
[2017-07-21] MEDS: ACETAMINOPHEN TAB 325 MG TAB PO PRN (12:46)
[2017-07-21] MEDS: MULTIVITAMINS, THERA 1 EACH TAB PO SCH (12:47)
== END 2017-07-21 13:30 | disposition home or self-care (01) ==
LOC: EC 02:54 → 6PED 03:34
PROVIDERS: ADMIT Obstetrics & Gynecology; ATTEND Obstetrics & Gynecology
DX: N99.820 Postprocedural hemorrhage of a genitourinary system organ or structure following a genitourinary system procedure (principal); N93.8 Other specified abnormal uterine and vaginal bleeding; N39.3 Stress incontinence (female) (male); N81.4 Uterovaginal prolapse, unspecified; Z90.710 Acquired absence of both cervix and uterus; R10.2 Pelvic and perineal pain; I10 Essential (primary) hypertension; J44.9 Chronic obstructive pulmonary disease, unspecified; K21.9 Gastro-esophageal reflux disease without esophagitis; F31.9 Bipolar disorder, unspecified; F41.9 Anxiety disorder, unspecified; M19.90 Unspecified osteoarthritis, unspecified site; Z87.891 Personal history of nicotine dependence; Z79.82 Long term (current) use of aspirin; Z79.899 Other long term (current) drug therapy; Z91.013 Allergy to seafood; Z88.8 Allergy status to other drugs, medicaments and biological substances
CPT/HCPCS: 85027; 96361; 96374; 96375; 96376; 99285